=== PATIENT | female | born 1985 | race Hispanic/Latino ===

== ENCOUNTER 2021-11-17 08:57 | Outpatient (CLI) | payer OTHER | END 2021-11-17 08:58 | disposition home or self-care (01) | LOC: RAD 08:57 | PROVIDERS: ATTEND Internal Medicine Pulmonary Disease | DX: R06.00 Dyspnea, unspecified (principal) | CPT/HCPCS: 71046 ==

== ENCOUNTER 2023-08-22 16:09 | Emergency (ER) | payer OTHER, MEDICARE ==
[2023-08-22] MEDS ORDERED: Ketorolac Tromethamine 30 MG/ML VIAL ONE (16:38)
== END 2023-08-22 18:28 | disposition home or self-care (01) ==
LOC: ERS 16:09
DX: R07.89 Other chest pain (principal)
CPT/HCPCS: 71045; 93005; 96372; J1885

== ENCOUNTER 2024-06-22 17:59 | Emergency (ER) | payer OTHER | END 2024-06-22 18:55 | disposition home or self-care (01) | LOC: ERS 17:59 | DX: Z76.0 Encounter for issue of repeat prescription (principal); M06.9 Rheumatoid arthritis, unspecified | CPT/HCPCS: 99281 ==

== ENCOUNTER 2024-06-23 06:56 | Emergency (ER) | payer OTHER ==
[2024-06-23] MEDS ORDERED: Ketorolac Tromethamine 30 MG (1 mL) VIAL ONE (07:37)
== END 2024-06-23 08:19 | disposition home or self-care (01) ==
LOC: ERS 06:56
DX: M06.9 Rheumatoid arthritis, unspecified (principal)
CPT/HCPCS: 96372; 99283; J1885